=== PATIENT | female | born 2000 | race African-American/Black ===

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

== ENCOUNTER 2023-10-04 21:56 | Emergency (ER) | payer OTHER ==
[2023-10-04 22:12] VITALS: BP 120/67; PULSE 66; RESP 18; TEMP 97.9; BMI 21.1
[2023-10-04] MEDS ORDERED: ACETAMINOPHEN 325 MG TABLET (FP) ONE (23:42)
[2023-10-04] MEDS ORDERED: LIDOCAINE 4% PATCH TP ONE (23:43)
[2023-10-04] MEDS ORDERED: KETOROLAC TROMETHAMINE 15 MG/ML VIAL ONE (23:44)
[2023-10-04] MEDS: LIDOCAINE 4% PATCH TP ONE (23:54)
[2023-10-04] MEDS: ACETAMINOPHEN 325 MG TABLET (FP) PO ONE (23:54)
[2023-10-04] MEDS: KETOROLAC TROMETHAMINE 15 MG/ML VIAL IM ONE (23:55)
[2023-10-04] MEDS ORDERED: METHOCARBAMOL 500 MG TABLET ONE (23:58)
[2023-10-05] MEDS: METHOCARBAMOL 500 MG TABLET PO ONE (00:05)
== END 2023-10-05 02:06 | disposition home or self-care (01) ==
LOC: JER 21:56
PROC: 3E0233Z Introduction of Anti-inflammatory into Muscle, Percutaneous Approach (ICD-10-PCS; principal; 2023-10-04)
DX: M25.571 Pain in right ankle and joints of right foot (principal); M54.50 Low back pain, unspecified; R51.9 Headache, unspecified; V09.9XXA Pedestrian injured in unspecified transport accident, initial encounter; Y92.410 Unspecified street and highway as the place of occurrence of the external cause
CPT/HCPCS: 70450-TC; 72128-TC; 72131-TC; 73590-TC-RT-FY; 73610-TC-RT-FY; 73630-TC-RT-FY; 84703; 99285-25